=== PATIENT | female | born 1940 | race Caucasian/White ===

== ENCOUNTER 2021-02-28 21:08 | Inpatient (IN) | payer MEDICARE, SELFPAY ==
--- NOTE | ~2021-02-28 | CT_ITS ---
EXAMINATION: CT brain wo con DATE: 02/28/2021 21:50 INDICATION: Left facial droop TECHNIQUE: Computed tomography (CT) of the head was performed without intravenous contrast. Sagittal and coronal reconstructions were performed. The mA was adjusted according to patient size. Iterative reconstruction technique was employed. The dose-length product was 605.33 mGy-cm. COMPARISON: head CT dated 04/01/2016 FINDINGS: No acute intracranial hemorrhage, acute infarction or abnormal extra axial fluid collection. There is mild scattered white matter hypoattenuation consistent with chronic small vessel ischemic disease. V entricles are normal and symmetric. No mass/mass effect. Chronic small left mastoid effusion. The orb its and paranasal sinuses are normal. IMPRESSION: 1. Mild scattered white matter hypoattenuation consistent with chronic small vessel ischemic disease. No acute intracranial process. Reviewed, dictated and finalized at location A. IMPRESSION: 1. Mild scattered white matter hypoattenuation consistent with chronic small ve ssel ischemic disease. No acute intracranial process.
--- NOTE | ~2021-02-28 | US_ITS ---
EXAMINATION: US carotid duplex BI DATE: 03/01/2021 17:49 INDICATION: Left facial weakness. TECHNIQUE: Grayscale, color Doppler, and pulsed Doppler images of the cervical carotid arteries were obtained. The degree of vessel stenosis is placed in one of the following categories: normal, <50%, 5 0-69%, >=70% but less than near-occlusion, near-occlusion, or total occlusion. Note that percent sten osis relative to normal distal artery lumen diameter is indirectly measured from velocity measurement s as described by Angel, et al. Radiology 2003; 229:[id number]. COMPARISON: None. FINDINGS: There is an arrhythmia. RIGHT: The right common carotid artery (CCA) peak systolic velocity (PSV) is 82 cm/s. The right internal car otid artery (ICA) PSV is 82 cm/s. The right ICA end-diastolic velocity (EDV) is 25 cm/s. The right IC A/CCA PSV ratio is 1.0. Grayscale and color Doppler images yield an estimate of <50% diameter reducti on from plaque in the ICA. There is antegrade flow in the right vertebral artery. LEFT: The left CCA PSV is 99 cm/s. The left ICA PSV is 127 cm/s. The left ICA EDV is 31 cm/s. The left ICA/ CCA PSV ratio is 1.3. Grayscale and color Doppler images yield an estimate of <50% diameter reduction from plaque in the ICA. There is antegrade flow in the left vertebral artery. IMPRESSION: 1. <50% stenosis in the right internal carotid artery. 2. <50% stenosis in the left internal carotid artery. 3. Arrhythmia. Reviewed, dictated and finalized at location A.
--- NOTE | ~2021-02-28 | XR_ITS ---
EXAMINATION: XR chest 1V DATE: 02/28/2021 21:52 INDICATION: Stroke symptoms TECHNIQUE: frontal view of the chest was obtained. COMPARISON: Chest radiograph dated 04/01/2016 FINDINGS: Small calcified nodule at the left upper lung zone consistent with old granulomatous disease. No othe r airspace opacities, pulmonary edema, pleural effusion or pneumothorax. The cardiomediastinal silhou ette is normal. Visualized bones and soft tissues are unremarkable. IMPRESSION: 1. No acute cardiopulmonary disease. Reviewed, dictated and finalized at location A.
[2021-02-28 21:14] VITALS: BP 137/97; PULSE 117; RESP 20; TEMP 36.8; O2SAT 98
--- NOTE | 2021-02-28 21:41 | PC.NURSE ---
pt to CT at this time
--- NOTE | 2021-02-28 21:44 | ECG_ITS ---
Measurements Intervals [place] Rate: 108 P: [place]: 0 QRS: 49 QRSD: 79 T: 62 QT: 337 QTc: 453 Interpretive Statements ATRIAL FIBRILLATION WITH RAPID VENTRICULAR RESPONSE BASELINE ARTIFACT- I, II, AVR, AVF, V1, V3-V6 ABNORMAL ECG Electronically Signed On 03-01-2021 6:19:31 CDT by Farhat Duarte D.O.
[2021-02-28 21:59] LABS: Glucose Point of Care 191 mg/dl (65-105)
[2021-02-28 22:14] LABS: Basophils Absolute Auto 0.1 K/mm3 (0.0-0.1); Basophils Percent Auto 0.5 % (0.2-1.2); Eosinophils Absolute Auto 0.1 K/mm3 (0-0.3); Eosinophils Percent Auto 1.2 % (0-4.4); Hemoglobin 12.8 g/dL (12.0-15.0); Immature Granulocyte Absolute 0.05 K/mm3 (0.00-0.031); Immature Granulocyte Percent A 0.5 % (0-0.5); Lymphocytes Absolute Auto 1.53 K/mm3 (0.9-3.2); Lymphocytes Percent Auto 14.9 % (18.3-44.2); Mean Corpuscular HGB Conc 32.8 g/dl (32-36); Mean Corpuscular Hemoglobin 29.8 pg (26-34); Mean Corpuscular Volume 90.9 fl (80-100); Mean Platelet Volume 11.6 fl (7.4-10.4); Monocytes Absolute Auto 0.8 K/mm3 (0.1-0.6); Monocytes Percent Auto 7.6 % (2.6-8.5); Neutrophils Absolute Auto 7.8 K/mm3 (1.3-6.7); Neutrophils Percent Auto 75.3 % (45.5-73.1); Platelet Count Result 152 k/mm3 (150-375); Red Blood Count 4.29 M/mm3 (4.2-5.4); White Blood Count 10.3 K/mm3 (4.5-10.0)
[2021-02-28 22:19] LABS: Add Urine Microscopic? YES; Appearance Urine Clear (Clear); Bilirubin Urine Negative (Negative); Blood Urine 2+ (Negative); Color Urine Colorless (Yellow); Glucose Urine UA 2+ mg/dL (Negative); Ketones Urine Negative (Negative); Leukocyte Esterase Ur Negative LEU/UL (Negative); Nitrate Urine Negative (Negative); Protein Urine Negative (Negative); RBC Urine 0-2 /hpf (0-2); Specific Grav Ur 1.006 (1.001-1.035); Squamous Epithelial Cell Urine Rare /hpf (Few); Urobilinogen Urine Negative mg/dL (<2.0); WBC Urine 0-3 /hpf
[2021-02-28 22:24] LABS: Anion Gap 10 mmol/L (8-16); Blood Urea Nitrogen 18 mg/dL (7-17); Calcium 9.5 mg/dL (8.4-10.2); Carbon Dioxide 23 mmol/L (22-30); Chloride 108 mmol/L (98-107); Estimated CRCL calculation 39 ml/min; Estimated Glomerular Filt Rate > 60; Glucose 198 mg/dL (65-105); Potassium 3.8 mmol/L (3.4-5.0); Sodium 141 mmol/L (137-145)
[2021-02-28 22:35] LABS: Troponin I < 0.012 ng/mL (0.000-0.034)
[2021-02-28 23:00] VITALS: PULSE 120
[2021-02-28] MEDS: METOPROLOL TARTRATE 12.5 MG TABLET PO (23:00)
--- NOTE | 2021-02-28 23:01 | ED.NEUROSD ---
HPI - Neuro Symptoms/Deficit General Chief Complaint: Suspected CVA Stated Complaint: arm weakness Time Seen by Provider: 02/28/21 21:15 History of Present Illness HPI Narrative: Patient is a 80-year-old female who presents ER with concerns for stroke/TIA. Patient was sitting at dinner when she began to feel weak. She cannot hear the people at the table eating. She looked down to her hand and it was shaking. Family reported that she had right-sided facial droop. Symptoms lasted for several minutes. Resolved by the time EMS arrived. Patient with recent diagnosis of atrial fibrillation and just started metoprolol and warfarin. She is supposed to have follow-up with Dr. Huang tomorrow. She has no chest pain or chest pressure. She does not feel like her heart is racing. Related Data Home Medications Medication Instructions Recorded Confirmed ascorbic acid (vitamin C) [Vitamin 1,000 mg PO DAILY 07/08/19 03/01/21 C] calcium carbonate-vitamin D3 1 cap PO BID 07/08/19 03/01/21 [Calcium 600 with Vitamin D3] cholecalciferol (vitamin D3) 1,000 unit PO DAILY 07/08/19 03/01/21 [Vitamin D3] turmeric root extract 500 mg 500 mg PO DAILY 05/25/20 03/01/21 capsule magnesium 250 mg tablet 250 mg PO DAILY 08/27/20 03/01/21 vitamin B complex 1 tablet PO DAILY 08/27/20 03/01/21 metoprolol succinate 12.5 mg PO DAILY 03/01/21 03/01/21 warfarin 5 mg PO DAILY 03/01/21 03/01/21 Allergies Allergy/AdvReac Type Severity Reaction Status Date / Time No Known Allergies Allergy Verified 08/27/20 12:59 Review of Systems Review of Systems: All systems reviewed & are unremarkable except as noted in HPI and below Cardiovascular: Cardiovascular: Denies chest pain, Denies diaphoresis and Denies palpitations Respiratory: Respiratory: Denies cough and Denies dyspnea Gastrointestinal: Gastrointestinal: Denies abdominal pain, Denies nausea and Denies vomiting Neurologic: Denies headache(s), Reports focal weakness (Facial droop), Denies loss of vision, Denies numbness, Reports tremor(s) and Reports weakness PMFSH Past Medical History Medical History (Updated 03/01/21 @ 06:52 by Florencio Tariq MD) Anxiety Arthritis Atrial fibrillation Chronic rhinitis Degenerative joint disease of knee Depression DVT (deep venous thrombosis) Effusion, right knee Essential (primary) hypertension History of DVT (deep vein thrombosis) Hyperlipidemia Hypothyroidism Lumbar back pain Other spondylosis with myelopathy, lumbar region Right knee pain Thyroid disease Vertigo Vision abnormalities Surgical History Surgical History History of bladder surgery History of hysterectomy Hx of cholecystectomy Status post arthroscopy of right knee Family History Family History (Updated 03/01/21 @ 01:49 by Concha Murray RN) Mother Patient's mother is Family history of malignant neoplasm of breast in first degree relative Father Patient's mother is Sibling Family history of arthritis Other Cerebrovascular accident Family history of heart disease in male family member before age 55 Family history of malignant neoplasm of breast Social History Social History Smoking status: Never smoker Second hand tobacco smoke exposure: No Alcohol intake: never Substance use: never Substance use type: does not use Spiritual care concerns: No Exam Narrative: Exam Narrative: GENERAL: Well-appearing, well-nourished, and in no acute distress. HEAD: Normocephalic, atraumatic. EYES: PERRL and EOMI. ENT: Mucous membranes moist. CHEST: Clear to auscultation. No respiratory distress. HEART: Tachycardic with an irregular regular rate and rhythm. Normal peripheral pulses. ABDOMEN: Soft, nontender, nondistended. EXTREMITIES: Normal range of motion. No edema. SKIN: Warm, dry, no rash. NEURO:
[2021-02-28 23:16] VITALS: BP 116/86; PULSE 102; RESP 21; O2SAT 98
[2021-02-28 23:23] LABS: INR 1.2; Prothrombin Time 16.2 Seconds (11.1-14.7)
[2021-02-28 23:24] LABS: Partial Thromboplastin Time 26.5 SECONDS (22.3-36.8)
[2021-02-28] MEDS: ENOXAPARIN 80 MG/0.8 ML SYRINGE 61 MG SUB-Q (23:40)
[2021-02-28] MEDS: ACETAMINOPHEN 325 MG TABLET 650 MG PO (23:40)
[2021-03-01] VITALS (15 sets, daily range): BP systolic 106–122; BP diastolic 55–83; PULSE 73–137; RESP 16–18; TEMP 36.3–37; O2SAT 96–100; BMI 24.1
--- NOTE | 2021-03-01 | ECHO_ITS ---
Patient Info Name: Jenna Ozuna Age: 80 years : 1940 Gender: Female Ht: 62 in Wt: 134 lbs BSA: 1.64 m2 HR: 100 bpm BP: 107 / 58 mmHg Heart Rhythm: Atrial Fibrillation Technical Quality: Good Exam Date: 03/01/2021 1:48 PM Exam Location: [facility] Patient Status: Inpatient Admit Date: 03/01/2021 Staff Ordering Physician: Aram Coronado MD Helmet Hat Sweatband Puncher: Chase Garcia, MOE, RT Attending Provider: Aram Coronado MD Exam Type: CA echo doppler color flow Study Info Indications I63.239 - Cerebral infarction due to unspecified occlusion or stenosis of unspecified carotid arteries Complete two-dimensional, color flow and Doppler transthoracic echocardiogram is performed. Summary 1. Complete two-dimensional, color flow and Doppler transthoracic echocardiogram is performed. 2. Left ventricular chamber dimension is normal. 3. Left ventricular systolic function is normal, estimated at 60-65%. 4. There is mildly increased left ventricular wall thickness. 5. The left ventricular diastolic function is indeterminate. 6. Left atrial chamber dimension is moderately enlarged. 7. Somewhat abnormal appearance of the left atrium including pulmonary venous inflow. 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 8. There is mild aortic valve regurgitation. 9. There is moderate mitral valve regurgitation. 10. There is mild tricuspid valve regurgitation. 11. Mild pulmonary hypertension, estimated pulmonary arterial systolic pressure is 39 mmHg. 12. There is mild pulmonic regurgitation. Left Ventricle Left ventricular chamber dimension is normal. Left ventricular systolic function is normal, estimated at 60-65%. There is mildly increased left ventricular wall thickness. The left ventricular diastolic function is indeterminate. Right Ventricle Right ventricular chamber dimension is normal. Right ventricular systolic function is normal. Left Atria Left atrial chamber dimension is moderately enlarged. Somewhat abnormal appearance of the left atrium including pulmonary venous inflow. 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 Right Atria Right atrial chamber dimension is normal. Aortic Valve The aortic valve is trileaflet. There is mild aortic valve sclerosis. There is no aortic valve stenosis. There is mild aortic valve regurgitation. Pulmonic Valve The pulmonic valve is normal. There is no pulmonic valve stenosis. There is mild pulmonic regurgitation. Mitral Valve The mitral valve has normal leaflets. There is no mitral valve stenosis. There is moderate mitral valve regurgitation. Tricuspid Valve The tricuspid valve leaflets are normal. There is no significant tricuspid valve stenosis. There is mild tricuspid valve regurgitation. Mild pulmonary hypertension, estimated pulmonary arterial systolic pressure is 39 mmHg. Pericardium/Pleural The pericardium appears normal. There is no pericardial effusion. Inferior Vena Cava Normal inferior vena cava with <50% collapse upon inspiration consistent with elevated right atrial pressure, 10 mmHg. Aorta The aortic root size at the sinus of Valsalva is normal. Left Ventricular Outflow Tract Name Value Normal LVOT Doppler
--- NOTE | 2021-03-01 01:00 | PM.IMHP ---
H&P: HPI History of Present Illness Date/Time: 03/01/21 01:00 Chief Complaint: Stroke-like symptoms Narrative: Patient is a 80-year-old female who presents ER with concerns for stroke/TIA. Patient was sitting at dinner when she began to feel weird. She states she could not h see also felt like her hand was shaking. Jamal was not able to comprehend well. Family had noticed a right-sided facial droop at that time and they called and EMS. The symptoms lasted only for few minutes with complete resolution. By the time EMS was arrived the symptoms were resolved. She was brought into the ER for further evaluation She was recently diagnosed with atrial fibrillation while he was at the eye doctor for cataract surgery. While she was planned for the surgery the eye doctor had noticed an irregular heartbeat for which she was sent to her regular doctor for evaluation. Jamal had an EKG done at her primary care's office which showed atrial fibrillation diagnosing the same. She was then started on metoprolol which he has already started taking. She was given offered to start Eliquis however the cost was too high and hence he opted to be on warfarin. She had started her warfarin since past 3 days 5 mg every night. She is also scheduled to see Dr. Nicole for atrial fibrillation tomorrow. She has no chest pain or chest pressure. She does not feel like her heart is racing. Review of Systems Review of Systems: Narrative: - CONSTITUTIONAL: Denies weight loss, fever and chills. - HEENT: Denies changes in vision and hearing - RESPIRATORY: Denies SOB and cough. - CV: Reports palpitations and denies CP. - GI: Denies abdominal pain, nausea, vomiting and diarrhea. - : Denies dysuria and urinary frequency. - MSK: Denies myalgia and joint pain. - SKIN: Denies rash and pruritus. - NEUROLOGICAL: Denies headache and syncope. - PSYCHIATRIC: Denies recent changes in mood. Denies anxiety and depression. All systems reviewed & are unremarkable except as noted in HPI and below Neurologic: Reports weakness Endocrine: Endocrine: Reports fatigue [facility] Past Medical History Medical History (Updated 02/28/21 @ 23:03 by Florencio Tariq MD) Anxiety Arthritis Atrial fibrillation Chronic rhinitis Degenerative joint disease of knee Depression DVT (deep venous thrombosis) Effusion, right knee Essential (primary) hypertension History of DVT (deep vein thrombosis) Hyperlipidemia Hypothyroidism Lumbar back pain Other spondylosis with myelopathy, lumbar region Right knee pain Thyroid disease Vertigo Vision abnormalities Surgical History Surgical History History of bladder surgery History of hysterectomy Hx of cholecystectomy Status post arthroscopy of right knee Family History Family History (Updated 03/01/21 @ 01:49 by Concha Murray RN) Mother Patient's mother is Family history of malignant neoplasm of breast in first degree relative Father Patient's mother is Sibling Family history of arthritis Other Cerebrovascular accident Family history of heart disease in male family member before age 55 Family history of malignant neoplasm of breast Social History Social History Smoking status: Never smoker Second hand tobacco smoke exposure: No Alcohol intake: never Substance use: never Substance use type: does not use Spiritual care concerns: No Meds Home Medications and Allergies Home Medications Medication Instructions Recorded Confirmed Type ascorbic acid (vitamin C) [Vitamin 1,000 mg PO DAILY 07/08/19 03/01/21 History C] calcium carbonate-vitamin D3 1 cap PO BID 07/08/19 03/01/21 History [Calcium 600 with Vitamin D3] cholecalciferol (vitamin D3) 1,000 unit PO DAILY 07/08/19 03/01/21 History [Vitamin D3] turmeric root extract 500 m
--- NOTE | 2021-03-01 01:23 | ADMGEN ---
Addendum entered by Concha Murray RN 03/01/21 01:23: correction: at 1250 am. Original Note: This patient, Jenna Ozuna, was admitted to IMU Room 201-01 on 03/01/21 at 1250 pm. Patient/family oriented to hospital policies and general routines including ID bracelet, bed and alarms, visiting hours, pain management, procedures, bathroom and other care routines, personal items, smoking policy, room service/diet, and visiting hours. Information on how to activate the Rapid Response Team has been discussed. Patient/Family are encouraged to report perceived risks to care and to ask questions if they do not understand what they are told or what they should do.
[2021-03-01 03:24] LABS: Cholesterol 116 mg/dL (0-200); HDL Direct 48 mg/dL; Triglycerides 110 mg/dL (<150)
[2021-03-01 03:27] LABS: Hemoglobin A1C 5.3 % (<5.7)
[2021-03-01 03:35] LABS: LDL Cholesterol Direct 42 mg/dL
[2021-03-01] MEDS: LEVOTHYROXINE SODIUM 50 MCG TABLET PO (06:07)
[2021-03-01] MEDS: ASCORBIC ACID 500 MG TABLET 1000 MG PO (08:46)
[2021-03-01] MEDS: VITAMIN B COMPLEX CAPSULE 1 CAP PO (08:46)
[2021-03-01] MEDS: ENOXAPARIN 60 MG/0.6 ML SYRINGE SUB-Q ×2 (08:46→20:23)
[2021-03-01] MEDS: ATORVASTATIN 10 MG TABLET PO (08:46)
[2021-03-01] MEDS: CHOLECALCIFEROL 1,000 UNITS TABLET 1000 UNITS PO (08:46)
--- NOTE | 2021-03-01 10:59 | WPDNEURCNPN ---
Assessment and Plan Assessment and plan (1) Brain TIA: Code(s): G45.9 - Transient cerebral ischemic attack, unspecified Status: Acute Additional Plan atrial fib treatment as per Cardiology Consult date: 03/03/21 Time Seen: 11:00 HPI: Jenna Ozuna is a 80 year old female has been admitted to the [facility] through the emergency room for the concerns regarding the stroke. As per the information available patient was sitting at dinner table when she started feeling weird she had difficulties in seeing and her head was shaking she has also difficulties in comprehension and the observer saw that her right side of face was drooping EMS were called to the scene she was brought to the emergency room admitted to the hospital for further evaluation. Patient has been recently diagnosed to have atrial fibrillation when she was at the eye doctor for the cataract surgery EKG was carried out to the primary care physician and atrial fibrillation was documented as such and she was started on metoprolol he was offered to take Eliquis but she opted to take the warfarin which was started about 3 days ago 5 mg HS and she was to see Dr. Nicole for atrial fibrillation in the future her previous course is complicated with the ongoing history of arthritis with degenerative joint disease, for tension, history of DVT in the past, hyperlipidemia and low back pain with spondylosis pertinent investigations during this hospitalization have been fairly normal CBC, coagulation studies, blood sugar of [address] scan only documented hypoattenuation consistent with the chronic small-vessel ischemic disease no acute bleed or vascular territorial stroke Review of Systems Review of Systems: All systems reviewed & are unremarkable except as noted in HPI and below PMFSH Past Medical History Medical History Anxiety Arthritis Atrial fibrillation Chronic rhinitis Degenerative joint disease of knee Depression DVT (deep venous thrombosis) Effusion, right knee Essential (primary) hypertension History of DVT (deep vein thrombosis) Hyperlipidemia Hypothyroidism Lumbar back pain Other spondylosis with myelopathy, lumbar region Right knee pain Thyroid disease Vertigo Vision abnormalities Surgical History Surgical History History of bladder surgery History of hysterectomy Hx of cholecystectomy Status post arthroscopy of right knee Family History Family History Mother Patient's mother is Family history of malignant neoplasm of breast in first degree relative Father Patient's mother is Sibling Family history of arthritis Other Cerebrovascular accident Family history of heart disease in male family member before age 55 Family history of malignant neoplasm of breast Social History Social History Smoking status: Never smoker Second hand tobacco smoke exposure: No Alcohol intake: never Substance use: never Substance use type: does not use Spiritual care concerns: No Meds Home Medications and Allergies Home Medications Medication Instructions Recorded Confirmed Type ascorbic acid (vitamin C) [Vitamin 1,000 mg PO DAILY 07/08/19 03/01/21 History C] calcium carbonate-vitamin D3 1 cap PO BID 07/08/19 03/01/21 History [Calcium 600 with Vitamin D3] cholecalciferol (vitamin D3) 1,000 unit PO DAILY 07/08/19 03/01/21 History [Vitamin D3] turmeric root extract 500 mg 500 mg PO DAILY 05/25/20 03/01/21 History capsule magnesium 250 mg tablet 250 mg PO DAILY 08/27/20 03/01/21 History vitamin B complex 1 tablet PO DAILY 08/27/20 03/01/21 History levothyroxine 50 mcg tablet 50 mcg PO DAILY 90 Days #90 tablet 12/01/20 03/01/21 Rx atorvastatin 10 mg tablet 10 mg PO
[2021-03-01] MEDS: METOPROLOL TARTRATE 25 MG TABLET PO (11:36)
--- NOTE | 2021-03-01 12:19 | PM.CNCAR ---
Assessment and Plan Assessment and plan (1) Atrial fibrillation with RVR: Code(s): I48.91 - Unspecified atrial fibrillation Status: Acute Assessment and Plan: Uncertain how long she has actually been in atrial fibrillation. She is at risk of clot formation. 2D echocardiogram with Doppler is ordered. Will also keep her NPO after midnight for possible FATMATA plus minus cardioversion. Will increase her metoprolol to 50 mg p.o. q.8 hours. Continue enoxaparin 1 milligram/kilogram subcu q.12 hours. Will vogt out Xarelto at 20 mg p.o. daily. 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 Continue anticoagulation with enoxaparin for now. Will perform FATMATA plus/minus cardioversion tomorrow (5) Chronic anticoagulation: Code(s): Z79.01 - terminal system operator (current) use of anticoagulants Status: Acute Assessment and Plan: Continue enoxaparin for now. (6) Bilateral lower extremity edema: Code(s): R60.0 - Localized edema Status: Acute Assessment and Plan: Furosemide 20 mg IV x1. Potassium chloride 40 mg p.o. x1. History of Present Illness History of Present Illness Consult date/time: 03/01/21 12:19 Requesting physician: Florencio Tariq MD Consult reason: atrial fibrillation Reason For Visit: afib rvr, tia Narrative: Date of service 03/01/2021: History patient [age]-year-old female who previously saw Dr. Olivera from a cardiac perspective. She has been diagnosed with cor triatriatum remotely at [facility]. She recently was scheduled for a cataract surgery and was found to be in atrial fibrillation with rapid ventricular response. She was started on metoprolol and warfarin. Warfarin which shows because of cost with Eliquis. She has significant lower back pain as well as some knee pain. She has had lower extremity swelling since April 2019 after hernia operation. She also describes a chronic pleuritic type chest pain that occurs every once a while which is nonexertional. She does have dyspnea with exertion with climbing up 1 flight of stairs and has been present for couple of weeks. Yesterday she was at her daughter's house and she felt weird. She had some loss of control of her left hand and felt as if her left hand not belong to her. There is also reported right facial droop. She came the hospital for further evaluation. She has since recovered neurologically. She was found to be in atrial fibrillation with rapid ventricular response. She has been treated with enoxaparin as well as oral metoprolol. Heart rate is still elevated. She denies any paroxysmal nocturnal dyspnea, syncope. Chronic swelling since 2019 as stated above. She does not feel palpitations. Review of Systems Review of Systems: All systems reviewed & are unremarkable except as noted in HPI and below Constitutional: Constitutional: Denies weakness Eyes: Eyes: Denies blurry vision ENT: Reports Normal hearing present Cardiovascular: Cardiovascular: Reports chest pain and Reports leg edema Respiratory: Respiratory: Reports dyspnea and Reports dyspnea on exertion Gastrointestinal: Gastrointestinal: Denies abdominal pain Genitourinary: Genitourinary: Denies hematuria and Denies flank pain Musculoskeletal: Musculoskeletal: Reports back pain, Reports arthralgias and Denies neck pain Integumentary/Breasts: Skin/Breast: Denies dry skin and Denies unusual bruising Neurologic: Denies headache(s) and Denies numbness Psychiatric: Psychiatric:
--- NOTE | 2021-03-01 12:33 | PCPTNOTE ---
Attempted PT evaluation this date, however pt refused due to having back pain.
--- NOTE | 2021-03-01 14:12 | PM.IMPN ---
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 Brain MRI refused as she is claustrophobic Lovenox 1 milligram/kilogram twice a day switched to Xarelto Coumadin on hold Metoprolol tartrate 25 mg twice a day Cardiology and neurology consulted Started on lidoderm patch Subjective Date/time seen: 03/01/21 14:12 Interval history: 80-year-old female who presents ER with concerns for stroke/TIA. Pt is in AF receiving lovenox for anticoagulation. Review of Systems Review of Systems: All systems reviewed & are unremarkable except as noted in HPI and below Exam Narrative: Exam Narrative: GENERAL: The patient is well developed, not in acute distress HEENT: Nonicteric sclerae CHEST: Chest wall is nontender. HEART: Irregular rhythm mildly tachycardic without murmur, rubs, or gallops LUNGS: Clear to auscultation bilaterally. no respiratory distress ABDOMEN: Soft, positive bowel sounds, non-tender, no organomegaly. SKIN: No rash, no excessive bruising, petechiae, or purpura. NEUROLOGIC: Cranial nerves II-XII intact, alert and oriented x 3, no gross motor deficits EXTREMITIES: no edema, cyanosis or clubbing Objective Data Vital Signs Vital Signs: Vital Signs - 24 hr 02/28/21 21:14 02/28/21 23:00 02/28/21 23:16 Temperature 36.8 C Pulse Rate 117 H 120 H 102 H Respiratory Rate 20 21 H Blood Pressure 137/97 H 116/86 Pulse Oximetry 98 98 03/01/21 00:49 03/01/21 00:50 03/01/21 02:00 Temperature 36.7 C Pulse Rate 116 H 119 H 95 Respiratory Rate 17 16 Blood Pressure 122/83 122/75 Pulse Oximetry 100 100 03/01/21 02:24 03/01/21 04:00 03/01/21 06:00 Temperature 36.3 C L Pulse Rate 95 73 113 H Respiratory Rate 16 Blood Pressure 107/58 L Pulse Oximetry 98 03/01/21 08:00 03/01/21 10:00 03/01/21 12:00 Temperature 36.8 C 37.0 C Pulse Rate 120 H 132 H 137 H Respiratory Rate 17 17 Blood Pressure 118/74 119/67 Pulse Oximetry 100 100 Intake/Output Intake/Output: Intake & Output 02/26/21 02/27/21 02/28/21 03/01/21 23:59 23:59 23:59 23:59 Intake Total 480 Output Total 475 Balance 5 Meds/Results Medications: Active Medications Generic Name Dose Route Start Last Admin Trade Name Josuéq PRN Reason Stop Dose Admin Hydrocodone Bitart/Acetaminophen 1 tab 02/28/21 23:35 Hydrocodone/Acetaminophen (*Crx) 5-325 Mg Tablet PO Q4H PRN Pain Rated 4-6 Ascorbic Acid 1,000 mg 03/01/21 09:00 03/01/21 08:46 Ascorbic Acid 500 Mg Tablet PO 1,000 mg DAILY CARMEN Administration Atorvastatin Calcium 10 mg 03/01/21 09:00 03/01/21 08:46 Atorvastatin 10 Mg Tablet PO 10 mg DAILY CARMEN Administration Calcium Carbonate 500 mg 03/01/21 09:00 03/01/21 08:46 Calcium/Vitamin D 500 Mg Tablet PO 03/31/21 09:01 500 mg BID CARMEN Administration Enoxaparin Sodium 60 mg 03/01/21 09:00 03/01/21 08:46 Enoxaparin 60 Mg/0.6 Ml Syringe SUB-Q 60 mg Q12HR CARMEN Administration Levothyroxine Sodium 50 mcg 03/01/21 06:30 03/01/21 06:07 Levothyroxine Sodium 50 Mcg Tablet PO 50 mcg DAILY@0630 CARMEN Administration Metoprolol
[2021-03-01] MEDS: LIDOCAINE 5% PATCH 1 PATCH TRANSDERM (15:04)
[2021-03-01] MEDS: POTASSIUM CHLORIDE 20 MEQ TABLET 40 MEQ PO (15:05)
[2021-03-01] MEDS: FUROSEMIDE INJ 40 MG/4 ML VIAL 20 MG IV PUSH (15:05)
[2021-03-01] MEDS: METOPROLOL TARTRATE 50 MG TAB PO (20:22)
[2021-03-02] VITALS (9 sets, daily range): BP systolic 97–99; BP diastolic 52–65; PULSE 73–100; RESP 16–18; TEMP 35.8–36.5; O2SAT 97–100
[2021-03-02 04:35] LABS: Basophils Absolute Auto 0.1 K/mm3 (0.0-0.1); Basophils Percent Auto 0.6 % (0.2-1.2); Eosinophils Absolute Auto 0.1 K/mm3 (0-0.3); Eosinophils Percent Auto 0.7 % (0-4.4); Hematocrit 36.8 % (37.0-47.0); Hemoglobin 12.4 g/dL (12.0-15.0); Immature Granulocyte Absolute 0.04 K/mm3 (0.00-0.031); Immature Granulocyte Percent A 0.4 % (0-0.5); Lymphocytes Absolute Auto 2.18 K/mm3 (0.9-3.2); Lymphocytes Percent Auto 20.3 % (18.3-44.2); Mean Corpuscular HGB Conc 33.7 g/dl (32-36); Mean Corpuscular Hemoglobin 30.2 pg (26-34); Mean Corpuscular Volume 89.8 fl (80-100); Mean Platelet Volume 11.6 fl (7.4-10.4); Monocytes Absolute Auto 0.8 K/mm3 (0.1-0.6); Monocytes Percent Auto 7.8 % (2.6-8.5); Neutrophils Absolute Auto 7.5 K/mm3 (1.3-6.7); Neutrophils Percent Auto 70.2 % (45.5-73.1); Platelet Count Result 185 k/mm3 (150-375); Red Cell Distribution Width 12.7 % (11.5-14.5); White Blood Count 10.7 K/mm3 (4.5-10.0)
[2021-03-02 04:44] LABS: Anion Gap 8 mmol/L (8-16); Blood Urea Nitrogen 14 mg/dL (7-17); Carbon Dioxide 26 mmol/L (22-30); Chloride 108 mmol/L (98-107); Estimated CRCL calculation 34 ml/min; Estimated Glomerular Filt Rate 60; Glucose 94 mg/dL (65-105); Potassium 4.1 mmol/L (3.4-5.0); Sodium 142 mmol/L (137-145)
[2021-03-02] MEDS: METOPROLOL TARTRATE 50 MG TAB PO (06:28)
[2021-03-02] MEDS: LEVOTHYROXINE SODIUM 50 MCG TABLET PO (06:28)
[2021-03-02] MEDS: MAGNESIUM OXIDE 200 MG TABLET PO (08:50)
[2021-03-02] MEDS: ATORVASTATIN 10 MG TABLET PO (08:50)
[2021-03-02] MEDS: VITAMIN B COMPLEX CAPSULE 1 CAP PO (08:50)
[2021-03-02] MEDS: ASCORBIC ACID 500 MG TABLET 1000 MG PO (08:50)
[2021-03-02] MEDS: CHOLECALCIFEROL 1,000 UNITS TABLET 1000 UNITS PO (08:50)
[2021-03-02] MEDS: ENOXAPARIN 60 MG/0.6 ML SYRINGE SUB-Q (08:50)
[2021-03-02] MEDS: LIDOCAINE 5% PATCH 1 PATCH TRANSDERM (08:52)
--- NOTE | 2021-03-02 10:02 | PM.PNCARD ---
Progress Note: A&P Assessment and Plan (1) Atrial fibrillation with RVR: Code(s): I48.91 - Unspecified atrial fibrillation Status: Acute Assessment and Plan: Uncertain how long she has actually been in atrial fibrillation. She is at risk of clot formation. Will DC her enoxaparin and start her on Xarelto 20 mg p.o. daily Heart rate is well controlled with metoprolol. Plan will be for outpatient elective cardioversion in 4-6 weeks. Uninterrupted Xarelto in the interim period Okay for discharge from my perspective. 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 Will perform advanced cardiac imaging as an outpatient (3) Essential (primary) hypertension: Code(s): I10 - Essential (primary) hypertension Status: Acute Assessment and Plan: At goal (4) Brain TIA: Code(s): G45.9 - Transient cerebral ischemic attack, unspecified Status: Acute Assessment and Plan: Probable TIA from embolic from atrial fibrillation. Continue Xarelto (5) Chronic anticoagulation: Code(s): Z79.01 - intermediate project manager (current) use of anticoagulants Status: Chronic Assessment and Plan: Continue enoxaparin for now. (6) Bilateral lower extremity edema: Code(s): R60.0 - Localized edema Status: Chronic Subjective Date/time seen: 03/02/21 10:02 Interval history: 80-year-old female who presents ER with concerns for stroke/TIA. Date of service 03/02/2021: Feels well. No chest pain or shortness of breath. Feels much better overall today Review of Systems Review of Systems: All systems reviewed & are unremarkable except as noted in HPI and below Constitutional: Constitutional: Denies fatigue, Denies headache(s) and Denies weakness Eyes: Eyes: Denies blurry vision ENT: Reports Normal hearing present, Denies headache(s) and Denies neck pain Cardiovascular: Cardiovascular: Reports chest pain, Reports leg edema, Reports dyspnea and Reports dyspnea on exertion Respiratory: Respiratory: Reports dyspnea and Reports dyspnea on exertion Gastrointestinal: Gastrointestinal: Denies abdominal pain Genitourinary: Genitourinary: Denies hematuria and Denies flank pain Musculoskeletal: Musculoskeletal: Reports back pain, Reports arthralgias, Denies neck pain and Denies numbness Integumentary/Breasts: Skin/Breast: Denies dry skin and Denies unusual bruising Neurologic: Reports Normal hearing present, Denies confusion, Denies headache(s), Denies numbness and Denies weakness Psychiatric: Psychiatric: Denies anxiety and Denies confusion Endocrine: Endocrine: Denies fatigue Hematologic/Lymphatic: Hematologic/Lymphatic: Denies easy bleeding Allergic/Immunologic: Allergic/Immunologic: Denies GI upset with certain foods Exam Const: General: comfortable and no acute distress; No confusion Orientation/consciousness: No confusion HENMT: General nose exam: Normal nares present Eyes: Sclera: sclerae normal Neck: Neck: supple and no JVD Resp: Auscultation: clear to auscultation bilaterally Cardio: Rate: regular rate Rhythm: abnormal rhythm irregularly irregular GI: Inspection: non-distended Skin: General skin exam: normal color Neuro: General: No confusion Cranial nerves: Yes Normal hearing present Cognition (Neuro): normal cognition Speech: normal speech Extrem: General: normal to inspection Psych: Mental Status: mental status grossly normal Objective Data Vital Signs Vital Signs: Vital Signs - 24 hr 03/01/21 12:00 03/01/21 14:00 03/01/21 16:00 Temperature 37.0 C 37.0 C Pulse Rate 137 H 121 H 128 H Respiratory Rate 17 17 Blood Pressure 119/67 114/66 Pulse Oximetry 100 100 03/01/21 18:00 03/01/21 20:00 03/01/21 22:00 Temperature 36.4 C Pulse Rate 135 H
[2021-03-02 10:48] LABS: T4 Thyroxine 6.98 ug/dL (5.53-11.0)
--- NOTE | 2021-03-02 12:11 | PM.DS ---
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 Patient was sitting at dinner when she began to feel weird. She states she could not h see also felt like her hand was shaking. Jamal was not able to comprehend well. Family had noticed a right-sided facial droop at that time and they called and EMS. The symptoms lasted only for few minutes with complete resolution. By the time EMS was arrived the symptoms were resolved. She was brought into the ER for further evaluation She was recently diagnosed with atrial fibrillation while he was at the eye doctor for cataract surgery. While she was planned for the surgery the eye doctor had noticed an irregular heartbeat for which she was sent to her regular doctor for evaluation. Jamal had an EKG done at her primary care's office which showed atrial fibrillation diagnosing the same. She was then started on metoprolol which he has already started taking. She was given offered to start Eliquis however the cost was too high and hence he opted to be on warfarin. She had started her warfarin since past 3 days 5 mg every night. She is also scheduled to see Dr. Nicole for atrial fibrillation tomorrow. She has no chest pain or chest pressure. She does not feel like her heart is racing. Hospital Course: 80-year-old female presented emergency depart with symptoms TIA, symptoms resolved in few min, was found to have and a fibrillation with RVR, patient was started on metoprolol a rate is now controlled, patient was seen by shear operator automatic recommended the patient need to be anticoagulated 4-6 weeks before cardioverting, patient is started on Xarelto, patient rate is controlled clinically stable will discharge the patient to follow-up with cardiology as outpatient. Status at Discharge Functional status at discharge: independent ambulation Overall status at discharge: patient is back to baseline Time Spent with Patient Time attestation: Total time spent providing and/or coordinating discharge services: Patient was seen and examined at the time of the discharge Condition at discharge is stable Code status: Full code. Time spent preparing discharge summary, discharge medications, discussing discharge planning with manager rn case and patient is 35 minutes. Exam Narrative: Exam Narrative: Patient is comfortable, NAD HEENT: eyes are clear and none icteric LUNGS:CTA HEART: irregularly irregular ABD: BS+, Soft and nontender Lower extremities: no edema SKIN: nonjaundiced Neuro: grossly intact. DS: Data Data Completed and Pending Labs on day of discharge: Labs from last 24 hours 03/02/21 03/02/21 03/02/21 04:18 04:18 04:16 WBC 10.7 H RBC 4.10 L Hgb 12.4 Hct 36.8 L MCV 89.8 MCH 30.2 MCHC 33.7 RDW 12.7 Plt Count 185 MPV 11.6 H Immature Gran % (Auto) 0.4 Neut % (Auto) 70.2 Lymph % (Auto) 20.3 Borden % (Auto) 7.8 Eos % (Auto) 0.7 Baso % (Auto) 0.6 Lymph # (Auto) 2.18 Borden # (Auto) 0.8 H Eos # (Auto) 0.1 Baso # (Auto) 0.1 Abs Immat Gran (auto) 0.04 H Absolute Neuts (auto) 7.5 H Absolute Nucleated R
== END 2021-03-02 12:50 | disposition home or self-care (01) | DRG 69 ==
LOC: ANHED 22:01 → ANHIMU 03-01 00:15
PROVIDERS: Internal Medicine Cardiovascular Disease; Admitting Provider Internal Medicine; Emergency Provider Emergency Medicine; PCP Family Medicine; Visit Provider Family Medicine
DX: G45.9 Transient cerebral ischemic attack, unspecified (principal); Q24.2 Cor triatriatum; F40.240 Claustrophobia; R79.1 Abnormal coagulation profile; I48.91 Unspecified atrial fibrillation; I10 Essential (primary) hypertension; E78.5 Hyperlipidemia, unspecified; E03.9 Hypothyroidism, unspecified; M54.5 Low back pain; G89.29 Other chronic pain; R60.0 Localized edema; Z79.01 Long term (current) use of anticoagulants; Z79.899 Other long term (current) drug therapy; Z86.718 Personal history of other venous thrombosis and embolism
CPT/HCPCS: 36415; 70450; 71045; 80048; 80061; 81001; 82948; 83036; 84436; 84443; 84484; 85025; 85610; 85730; 93005; 93306; 93880; 96372; 97161; 97165; 99285; A9270; G0378; J1650; J1940

== ENCOUNTER 2021-03-30 01:09 | Day surgery (SDC) | payer MEDICARE, SELFPAY ==
[2021-03-29 15:50] VITALS: BMI 24.2
[2021-03-30] VITALS (9 sets, daily range): BP systolic 102–161; BP diastolic 66–103; PULSE 64–137; RESP 10–22; TEMP 36.3; O2SAT 97–100; BMI 24.8
--- NOTE | 2021-03-30 | ECG_ITS ---
Measurements Intervals [place] Rate: 78 P: 85 MS: 169 QRS: 40 QRSD: 71 T: 63 QT: 381 QTc: 435 Interpretive Statements WANDERING PACEMAKER LOW QRS VOLTAGE IN PRECORDIAL LEADS ATRIAL PREMATURE COMPLEX BORDERLINE ECG Electronically Signed On 03-30-2021 12:54:43 CDT by Farhat Duarte D.O.
--- NOTE | 2021-03-30 10:20 | ECG_ITS ---
Measurements Intervals [place] Rate: 118 P: AL: 0 QRS: 58 QRSD: 72 T: 57 QT: 325 QTc: 456 Interpretive Statements ATRIAL FIBRILLATION WITH RAPID VENTRICULAR RESPONSE BORDERLINE T WAVE ABNORMALITY- ANTEROLAT/HIGH LAT LEADS BASELINE WANDER- V4-V6 ABNORMAL ECG Electronically Signed On 03-30-2021 10:23:09 CDT by Farhat Duarte D.O.
[2021-03-30 10:23] LABS: INR 1.6; Prothrombin Time 18.7 Seconds (11.1-14.7)
[2021-03-30 10:26] LABS: Anion Gap 8 mmol/L (8-16); Blood Urea Nitrogen 17 mg/dL (7-17); Calcium 10.1 mg/dL (8.4-10.2); Carbon Dioxide 26 mmol/L (22-30); Chloride 106 mmol/L (98-107); Estimated CRCL calculation 34 ml/min; Estimated Glomerular Filt Rate 60; Glucose 91 mg/dL (65-110); Magnesium 1.9 mg/dL (1.6-2.3); Potassium 4.2 mmol/L (3.4-5.0); Sodium 140 mmol/L (137-145)
--- NOTE | 2021-03-30 11:15 | WPDHPUPDATE1 ---
History and Physical Update Update Date/Time: 03/30/21 1115 History and Physical has been reviewed, including an updated exam of the patient. There are NO changes in the patient's condition. Risks, benefits, and alternatives have been discussed and questions answered. Patient agrees to proceed with procedure.
--- NOTE | 2021-03-30 12:04 | WPDMODSED ---
Moderate Sedation Note-Pt Data Patient Data Diagnosis: atrial fibrillation with rapid ventricular response Present Complaint: none Procedure to be performed/Plan: transesophageal echocardiogram guided elective electrical cardioversion Allergies Allergy/AdvReac Type Severity Reaction Status Date / Time No Known Allergies Allergy Verified 03/30/21 10:36 Home Medications Medication Instructions Recorded Confirmed Type ascorbic acid (vitamin C) [Vitamin 1,000 mg PO DAILY 07/08/19 03/29/21 History C] calcium carbonate-vitamin D3 1 cap PO BID 07/08/19 03/29/21 History [Calcium 600 with Vitamin D3] turmeric root extract 500 mg 500 mg PO DAILY 05/25/20 03/29/21 History capsule magnesium 250 mg tablet 250 mg PO DAILY 08/27/20 03/29/21 History vitamin B complex 1 tablet PO DAILY 08/27/20 03/29/21 History levothyroxine 50 mcg tablet 50 mcg PO DAILY 90 Days #90 tablet 12/01/20 03/29/21 Rx atorvastatin 10 mg tablet 10 mg PO DAILY #90 tablet 12/23/20 03/29/21 Rx metoprolol tartrate 50 mg PO Q8HR #90 tablet 03/02/21 03/29/21 Rx rivaroxaban [Xarelto] 20 mg PO DAILY@1700 #30 tablet 03/02/21 03/29/21 Rx Current Medications: Active Medications Sodium Chloride (Normal Saline Iv) 500 mls @ 30 mls/hr IV CONT .[id number] CARMEN Sedation/Anesthesia: No previous sedation/anesthesia problems (including family history). [facility] Past Medical History Medical History Anxiety Arthritis Atrial fibrillation Chronic rhinitis Degenerative joint disease of knee Depression DVT (deep venous thrombosis) Effusion, right knee Essential (primary) hypertension History of DVT (deep vein thrombosis) Hyperlipidemia Hypothyroidism Lumbar back pain Other spondylosis with myelopathy, lumbar region Right knee pain Thyroid disease Vertigo Vision abnormalities Surgical History Surgical History History of bladder surgery History of hysterectomy Hx of cholecystectomy Status post arthroscopy of right knee Family History Family History Mother Patient's mother is Family history of malignant neoplasm of breast in first degree relative Father Patient's mother is Sibling Family history of arthritis Other Cerebrovascular accident Family history of heart disease in male family member before age 55 Family history of malignant neoplasm of breast Social History Social History Smoking status: Former smoker Second hand tobacco smoke exposure: No Smoking end date: 09/11/1961 Alcohol intake: never Substance use: never Substance use type: does not use Living arrangements: with family Gender identity (if verbalized by the patient): Female Sexual Orientation (if Verbalized by the Patient): Straight or Heterosexual Spiritual care concerns: No Mod Sed Physical Exam Physical Exam Pre Procedural Exam: Normal: Appearance, Eyes, Ears, Nose, Neck ( supple, normal range of motion), Throat ( posterior hypopharynx clear, nonerythematous), Airway ( normal anatomy, no obstruction), Lungs ( clear to auscultation bilaterally), Heart Size, Neuro Exam, Abdomen, Liver, Extremities and Skin and Variation: Heart Rate ( tachycardic) and Heart Rhythm ( irregularly irregular rate and rhythm) Hours since solid foods: 16 Hours since liquid intake: 16 Mallampati Classification: class III Internal Medicine - PN: Obj Da Vital Signs Vital Signs: Vital Signs - 24 hr 03/30/21 10:38 03/30/21 11:20 03/30/21 11:30 Temperature 36.3 C L Pulse Rate 137 H 117 H 120 H Respiratory Rate 22 H 20 10 L Blood Pressure 137/100 H 161/103 H Pulse Oximetry 100 99 100 03/30/21 11:40 03/30/21 11:45 Temperature Pulse Rate 121 H 74 Respiratory Rate 14 12 Blood Pressure 127/91 H 130/88 Pulse Oximetry 100 98
--- NOTE | 2021-03-30 12:07 | WPDTECDV ---
FATMATA with Cardioversion Date of procedure: 03/30/21 Procedure Type: transesophageal echocardiogram guided elective electrical cardioversion Diagnosis: atrial fibrillation with rapid ventricular response Indications: atrial fibrillation with rapid ventricular response Description of Procedure: Brief history present illness: Patient is a pleasant 80-year-old female with a history of cor triatriatum, atrial fibrillation with rapid ventricular response on systemic anticoagulation, dyslipidemia, hypothyroidism with persistent atrial fibrillation with rapid ventricular response referred for transesophageal echocardiogram-guided elective electrical cardioversion in attempt to restore sinus rhythm. Procedure in detail: After verbal and written informed consent was obtained the patient risks, benefits, and alternatives explained in detail the patient agreed to proceed with the plan of care as outlined above. Patient was evaluated at bedside in the [facility] procedure room. On examination, neck was supple with normal range of motion, no restrictions to opening of the oral cavity, jaw angle and posterior hypopharynx was clear. Lungs were clear to auscultation. Patient was placed in appropriate 30 to 45 degree angle in a supine, slight left lateral decubitus position. Patient was monitored throughout the study with telemetry, oxygen saturation, end-tidal CO2 monitoring, blood pressure, heart rate, and respirations. Anterior and posterior defibrillator pads placed in the appropriate positions. The posterior hypopharynx was then locally anesthetized using repeated administration of Hurricaine spray as well as gargled viscous lidocaine. After local anesthetic of the posterior hypopharynx was achieved and the oral bite block placed, moderate sedation was administered. Through the oral bite block, the transesophageal echocardiogram probe was advanced into the posterior hypopharynx and into the esophagus easily and without complication. Multiple, multiplanar echocardiographic images were obtained in multiple standard re-projections. Pulsed wave, continuous-wave, and color-flow Doppler were utilized in conjunction with this study. At the conclusion of the study, the transesophageal echocardiogram probe was removed easily and without complication. Patient tolerated the procedure well without difficulty. Patient was in atrial fibrillation throughout the study. Sedation: Moderate Sedation/Anesthesia administration: Patient denied previous intolerance or complications with anesthesia/sedation. Please see sedation note for documentation of the pre-procedure physical examination. As noted above, after adequate local anesthesia of the posterior hypopharynx was achieved, a total of 3mg intravenous Versed and a total of 100mcg intravenous Fentanyl in multiple divided doses was utilized for moderate sedation. Sedation start time was 1123 and end time was 1143 for a total of 20 minutes [id number] intra-procedure time. Sedation was administered by a qualified observer Vanesa Clay RN under my supervision with intra-procedure [id number] observation and management throughout the entirety of the procedure. There were no other issues or complications and patient tolerated the procedure well and sedation protocol well and I was present for the entirety. Findings: FINDINGS: LEFT VENTRICLE: Size and systolic function were within normal limits without wall motion abnormalities with ejection fraction of 60%. RIGHT VENTRICLE: Size and systolic function within normal limits. LEFT ATRIUM: Moderate left atrial enlargement RIGHT ATRIUM: Normal size. INTERATRIAL SEPTUM: Interatrial septum is anatomically normal without evidence of shunt with color-flow Doppler nor with injection of agitated saline. MITRAL VALVE: Mitral valve is anatomically normal with preserved leaflet excursion and at least moderate regurgitation. AORTIC VALVE: The aortic valve was an anatomical
--- NOTE | 2021-03-30 15:01 | SUR.PHASEII ---
1330 - FATMATA/CV complete. HR converted to NSR. pt tolerating po fluids without nausea or vomiting. IV discontinued, catheter intact, site without redness or swelling. Discharge instructions reviewed with pt and spouse with stated understanding. discharge via wheelchair to personal vehicle - driving.
== END 2021-03-30 13:30 | disposition home or self-care (01) ==
PROVIDERS: PCP Family Medicine; Visit Provider Internal Medicine Cardiovascular Disease
PROC: 5A2204Z Restoration of Cardiac Rhythm, Single (ICD-10-PCS; principal; 2021-03-30 11:00)
PROC: (CPT 93312; 2021-03-30 11:00)
DX: I48.19 Other persistent atrial fibrillation (principal); I34.0 Nonrheumatic mitral (valve) insufficiency; E78.5 Hyperlipidemia, unspecified; M81.0 Age-related osteoporosis without current pathological fracture; Z86.73 Personal history of transient ischemic attack (TIA), and cerebral infarction without residual deficits; Z79.01 Long term (current) use of anticoagulants
CPT/HCPCS: 36415; 80048; 83735; 85610; 92960; 93005; 93312; 93320; 93325; J2250; J3010; J7030

== ENCOUNTER 2023-04-13 01:07 | Day surgery (SDC) | payer MEDICARE, SELFPAY ==
[2023-04-06 12:58] VITALS: BMI 23.1
--- NOTE | 2023-04-12 20:13 | PM.HPGS ---
History of Present Illness History of Present Illness Consent: Risks, benefits, and alternatives have been discussed and questions answered. Patient agrees to proceed with procedure. Chief complaint: positive cologuard, heartburn Narrative: Jenna Ozuna is a 82 year old female with GERD symptoms and + Cologurd. She occasionally gets heartburn and lately has been having difficulty swallowing food at times without hanging up on the way down. Review of Systems Review of Systems: All systems reviewed & are unremarkable except as noted in HPI and below PMFSH Past Medical History Medical History Anxiety Arthritis Atrial fibrillation Chronic rhinitis Degenerative joint disease of knee Depression DVT (deep venous thrombosis) Effusion, right knee Essential (primary) hypertension History of DVT (deep vein thrombosis) Hyperlipidemia Hypothyroidism Lumbar back pain Other spondylosis with myelopathy, lumbar region Right knee pain Thyroid disease Vertigo Vision abnormalities Surgical History Surgical History History of bladder surgery History of hysterectomy Hx of cholecystectomy Status post arthroscopy of right knee Family History Family History Mother Patient's mother is Family history of malignant neoplasm of breast in first degree relative Father Patient's mother is Sibling Family history of arthritis Other Cerebrovascular accident Family history of heart disease in male family member before age 55 Family history of malignant neoplasm of breast Social History Social History Smoking status: Never smoker Second hand tobacco smoke exposure: No Smoking end date: 09/11/1961 Alcohol intake: current Substance use: never Substance use type: does not use Living arrangements: with family Gender identity (if verbalized by the patient): Female Sexual Orientation (if Verbalized by the Patient): Straight or Heterosexual Spiritual care concerns: No Meds Home Medications and Allergies Home Medications Medication Instructions Recorded Confirmed Type ascorbic acid (vitamin C) 500 mg 500 mg PO BID 07/08/19 04/06/23 History tablet (Vitamin C) turmeric root extract 500 mg 500 mg PO DAILY 05/25/20 04/06/23 History capsule atorvastatin 10 mg tablet 10 mg PO DAILY #90 tabs 12/23/20 04/06/23 Rx rivaroxaban 20 mg tablet (Xarelto) 20 mg PO DAILY@1700 #30 tabs 03/02/21 04/13/23 Rx Cinnamon 0.5 tsp PO DAILY 04/06/23 04/06/23 History acetaminophen 650 mg 650 mg PO BID 04/06/23 04/06/23 History tablet,extended release (Tylenol 8 Hour) cholecalciferol (vitamin D3) 25 25 mcg PO DAILY 04/06/23 04/06/23 History mcg (1,000 unit) tablet (Vitamin D3) levothyroxine 50 mcg tablet 50 mcg PO 0200 04/06/23 04/06/23 History (Euthyrox) lisinopril 20 mg tablet 20 mg PO DAILY 04/06/23 04/06/23 History loratadine 10 mg tablet 10 mg PO DAILY 04/06/23 04/06/23 History magnesium oxide 500 mg tablet 500 mg PO DAILY 04/06/23 04/06/23 History mecobalamin (vitamin B12) 1,000 1,000 mcg PO DAILY 04/06/23 04/06/23 History mcg disintegrating tablet,sublingual metoprolol succinate 100 mg 100 mg PO DAILY 04/06/23 04/13/23 History tablet,extended release 24 hr oxybutynin chloride 10 mg 10 mg PO DAILY 04/06/23 04/06/23 History tablet,extended release 24 hr trazodone 50 mg tablet 50 mg PO HS 04/06/23 04/06/23 History Allergies Allergy/AdvReac Type Severity Reaction Status Date / Time No Known Allergies Allergy Verified 04/13/23 07:46 Exam Const: General: alert Orientation/consciousness: patient oriented x3 Resp: Auscultation: clear to auscultation bilaterally Cardio: Rhythm: regular rhythm GI: GI Palp: Yes Soft to palpation and No Tender
[2023-04-13 07:48] VITALS: PULSE 112; RESP 18; TEMP 36.2; O2SAT 100
[2023-04-13] MEDS: LACTATED RINGERS 1,000 ML 150 ML IV CONT (08:12)
--- NOTE | 2023-04-13 08:29 | WPDANESEPPF ---
Anes - Initial Pre Proc Eval Procedure: Operation Date: 04/13/23 09:00 Proposed Procedures p Esophagogastroduodenoscopy & Colonoscopy - Wilber Cobb MD Date/Time: 04/13/23 08:29 Surgeon: Wilber Cobb MD Pre Op Diagnosis: positive cologuard, heartburn Patient Data Age: 82 Gender: F Height: 1.57 m Weight: 58.7 kg Last Vital Signs Temp 97.1 F L 04/13/23 07:48 Pulse 112 H 04/13/23 07:48 Resp 18 04/13/23 07:48 Pulse Ox 100 04/13/23 07:48 O2 Del Method Room Air 04/13/23 07:48 Allergies Allergy/AdvReac Type Severity Reaction Status Date / Time No Known Allergies Allergy Verified 04/13/23 07:46 Home Medications Medication Instructions Recorded Confirmed Type ascorbic acid (vitamin C) 500 mg 500 mg PO BID 07/08/19 04/06/23 History tablet (Vitamin C) turmeric root extract 500 mg 500 mg PO DAILY 05/25/20 04/06/23 History capsule atorvastatin 10 mg tablet 10 mg PO DAILY #90 tabs 12/23/20 04/06/23 Rx rivaroxaban 20 mg tablet (Xarelto) 20 mg PO DAILY@1700 #30 tabs 03/02/21 04/13/23 Rx Cinnamon 0.5 tsp PO DAILY 04/06/23 04/06/23 History acetaminophen 650 mg 650 mg PO BID 04/06/23 04/06/23 History tablet,extended release (Tylenol 8 Hour) cholecalciferol (vitamin D3) 25 25 mcg PO DAILY 04/06/23 04/06/23 History mcg (1,000 unit) tablet (Vitamin D3) levothyroxine 50 mcg tablet 50 mcg PO 0200 04/06/23 04/06/23 History (Euthyrox) lisinopril 20 mg tablet 20 mg PO DAILY 04/06/23 04/06/23 History loratadine 10 mg tablet 10 mg PO DAILY 04/06/23 04/06/23 History magnesium oxide 500 mg tablet 500 mg PO DAILY 04/06/23 04/06/23 History mecobalamin (vitamin B12) 1,000 1,000 mcg PO DAILY 04/06/23 04/06/23 History mcg disintegrating tablet,sublingual metoprolol succinate 100 mg 100 mg PO DAILY 04/06/23 04/13/23 History tablet,extended release 24 hr oxybutynin chloride 10 mg 10 mg PO DAILY 04/06/23 04/06/23 History tablet,extended release 24 hr trazodone 50 mg tablet 50 mg PO HS 04/06/23 04/06/23 History Patient hx anesthesia problems: none Family hx anesthesia problems: none Results Review: All pre-operative results and documents have been reviewed as part of the pre-operative evaluation. [facility] Past Medical History Medical History Anxiety Arthritis Atrial fibrillation Chronic rhinitis Degenerative joint disease of knee Depression DVT (deep venous thrombosis) Effusion, right knee Essential (primary) hypertension History of DVT (deep vein thrombosis) Hyperlipidemia Hypothyroidism Lumbar back pain Other spondylosis with myelopathy, lumbar region Right knee pain Thyroid disease Vertigo Vision abnormalities Surgical History Surgical History History of bladder surgery History of hysterectomy Hx of cholecystectomy Status post arthroscopy of right knee Family History Family History Mother Patient's mother is Family history of malignant neoplasm of breast in first degree relative Father Patient's mother is Sibling Family history of arthritis Other Cerebrovascular accident Family history of heart disease in male family member before age 55 Family history of malignant neoplasm of breast Social History Social History Smoking status: Never smoker Second hand tobacco smoke exposure: No Smoking end date: 09/11/1961 Alcohol intake: current Substance use: never Substance use type: does not use Living arrangements: with family Gender identity (if verbalized by the patient): Female Sexual Orientation (if Verbalized by the Patient): Straight or Heterosexual Spiritual care concerns: No Anes - Eval Final PreProcedure Day of Procedure 04/13/23 08:29 Patient weight: normal Heart
[2023-04-13 09:14] VITALS: BP 98/60; PULSE 88; RESP 22; O2SAT 100
[2023-04-13 09:24] VITALS: BP 91/54; PULSE 87; RESP 20; O2SAT 98
[2023-04-13 09:34] VITALS: BP 102/48; PULSE 74; RESP 20; O2SAT 98
[2023-04-13 09:44] VITALS: BP 130/79; PULSE 72; RESP 20; O2SAT 100
== END 2023-04-13 10:03 | disposition home or self-care (01) ==
PROVIDERS: PCP Family Medicine; Visit Provider Internal Medicine Gastroenterology
PROC: 0DJ08ZZ Inspection of Upper Intestinal Tract, Via Natural or Artificial Opening Endoscopic (ICD-10-PCS; CPT 43235; principal; 2023-04-13 09:00)
DX: Z12.11 Encounter for screening for malignant neoplasm of colon (principal); K57.30 Diverticulosis of large intestine without perforation or abscess without bleeding; R19.5 Other fecal abnormalities; K21.9 Gastro-esophageal reflux disease without esophagitis; I48.91 Unspecified atrial fibrillation; E78.5 Hyperlipidemia, unspecified; E03.9 Hypothyroidism, unspecified; F41.9 Anxiety disorder, unspecified; M47.16 Other spondylosis with myelopathy, lumbar region; Z86.718 Personal history of other venous thrombosis and embolism; Z79.01 Long term (current) use of anticoagulants
CPT/HCPCS: 43239; G0121; 87081; 88305; C1726; J2704; J7120

== ENCOUNTER 2023-07-27 11:33 | Outpatient (CLI) | payer MEDICARE, SELFPAY ==
--- NOTE | ~2023-07-27 | US_ITS ---
EXAMINATION: US art doppler w press LE BI DATE: 07/27/2023 12:44 INDICATION: Peripheral arterial occlusive disease. TECHNIQUE: Segmental pressures and plethysmographic and Doppler waveforms of the brachial and lower e xtremity arteries were obtained. COMPARISON: None. FINDINGS: Right and left brachial artery pressures of 147 mm Hg and 148 mm Hg, respectively, are concordant (no rmal difference <= 30 mmHg). The right ankle-brachial index (THIAGO) is 1.18 (normal >= 0.9-1). The right great toe-brachial index (T BI) is 1.02 (normal >= 0.6-0.8). The left THIAGO is 1.15. The left TBI is 1.14. Cardiac arrhythmia is pr esent. IMPRESSION: 1. Normal THIAGO's and TBI's bilaterally. No significant occlusive disease. 2. Cardiac arrhythmia is present. Correlate with EKG. Reviewed, dictated and finalized at location A. [employer]
== END 2023-07-27 11:34 | disposition home or self-care (01) ==
LOC: CHSIMG 11:36
PROVIDERS: PCP Nurse Practitioner Family; Visit Provider Podiatrist Foot & Ankle Surgery
DX: I73.9 Peripheral vascular disease, unspecified (principal); I49.9 Cardiac arrhythmia, unspecified
CPT/HCPCS: 93923

== ENCOUNTER 2025-09-05 14:10 | Emergency (ER) | payer MEDICARE, SELFPAY ==
[2025-09-05 14:45] VITALS: BP 170/130; PULSE 93; RESP 16; TEMP 36.4; O2SAT 100
--- NOTE | 2025-09-05 15:26 | ED.URI ---
HPI - URI/Sore Throat General Chief Complaint: Upper Respiratory Infection Stated Complaint: coughing, runny nose, headache Time Seen by Provider: 09/05/25 15:27 Source: patient, RN notes reviewed and old records reviewed Mode of arrival: ambulatory Limitations: no limitations History of Present Illness HPI Narrative: 85-year-old female presents to the [facility] with complaints of cough, runny nose and headache since yesterday Prior to arrival Denies chest pain or fevers. Patient mostly concerned because she had the same exact symptoms when she had COVID a year ago Related Data Home Medications ?Medication ?Instructions ?Recorded ?Confirmed ?Last Taken ?Type ascorbic acid (vitamin C) 500 mg 500 mg PO BID 07/08/19 09/05/25 03/29/21 History tablet (Vitamin C) turmeric root extract 500 mg 500 mg PO DAILY 05/25/20 04/06/23 03/29/21 History capsule Cinnamon 0.5 tsp PO DAILY 04/06/23 09/05/25 Unknown History acetaminophen 650 mg 650 mg PO BID 04/06/23 09/05/25 Unknown History tablet,extended release (Tylenol 8 Hour) cholecalciferol (vitamin D3) 25 25 mcg PO DAILY 04/06/23 09/05/25 Unknown History mcg (1,000 unit) tablet (Vitamin D3) levothyroxine 50 mcg tablet 50 mcg PO 0200 04/06/23 09/05/25 Unknown History (Euthyrox) lisinopril 20 mg tablet 20 mg PO DAILY 04/06/23 09/05/25 Unknown History loratadine 10 mg tablet 10 mg PO DAILY 04/06/23 04/06/23 Unknown History magnesium oxide 500 mg PO DAILY 04/06/23 04/06/23 Unknown History mecobalamin (vitamin B12) 1,000 1,000 mcg PO DAILY 04/06/23 04/06/23 Unknown History mcg disintegrating tablet,sublingual metoprolol succinate 100 mg 100 mg PO DAILY 04/06/23 09/05/25 04/13/23 06:00 History tablet,extended release 24 hr oxybutynin chloride 10 mg 10 mg PO DAILY 04/06/23 04/06/23 Unknown History tablet,extended release 24 hr trazodone 50 mg tablet 50 mg PO HS 04/06/23 09/05/25 Unknown History trospium 20 mg tablet mg 09/05/25 Unknown History Allergies Allergy/AdvReac Type Severity Reaction Status Date / Time No Known Allergies Allergy Verified 09/05/25 14:54 Review of Systems Review of Systems: All systems reviewed & are unremarkable except as noted in HPI and below Constitutional: Constitutional: Reports no additional constitutional complaints ENT: Reports as per HPI Cardiovascular: Cardiovascular: Reports no additional cardiovascular complaints, Denies chest pain and Denies dyspnea Respiratory: Respiratory: Reports as per HPI, Denies chest congestion, Reports cough and Denies dyspnea Musculoskeletal: Musculoskeletal: Reports no additional musculoskeletal complaints Integumentary/Breasts: Skin/Breast: Reports system reviewed and no additional complaints, except as docu [facility] Past Medical History Medical History Anxiety Arthritis Atrial fibrillation Chronic rhinitis Degenerative joint disease of knee Depression DVT (deep venous thrombosis) Effusion, right knee Essential (primary) hypertension History of DVT (deep vein thrombosis) Hyperlipidemia Hypothyroidism Lumbar back pain Other spondylosis with myelopathy, lumbar region Right knee pain Thyroid disease Vertigo Vision abnormalities Surgical History Surgical History History of bladder surgery History of hysterectomy Hx of cholecystectomy Status post arthroscopy of right knee Family History Family History Mother Patient's mother is Family history of malignant neoplasm of breast in first degree relative Father Patient's mother is Sibling Family history of arthritis Other Cerebrovascular accident Family history of heart disease in male family member before age 55 Family history of malignant neoplasm of breast Social History Social History Smoking status: Never smoker Second hand tobacco smoke exposure: No Smoking end date: 09/11/1961 Alcohol intake: current Substance use: never Substance use type: does not use Living arrangements: with family Gender identity (if verbalized by the patient): Female Sexual Orientation (if Verbalized by the Patient): Straight or Heterosexual Spiritual care concerns: No Comments At the time of my signature, I reviewed and agree with the nursing past medical, surgical, social, and family history. There is no relevant family history pertinent to the patient complaint. Exam Const: General: cooperative, no acute distress, well developed, alert, ill appearing chronically; not acutely and well nourished Nutritional Appearance: well nourished Orientation/consciousness: patient oriented x3 Limitations: no limitations HENMT: Head: normal to inspection Ears: hearing grossly normal bilaterally, external ears normal, TM's normal bilaterally, EAC's normal, mastoids normal and no periauricular adenopathy Mouth: Yes Normal oral and palatal mucosa present, Yes lip normal, Yes tongue normal and Yes moist mucous membranes Throat: posterior oropharynx normal, uvula midline and no uvular edema Eyes: General: appearance normal, both eyes and all related structures Alignment and Position: alignment normal Neck: Neck: normal visual inspection, full ROM, no lymphadenopathy and no meningeal signs Chest: Chest palpation & inspection: normal inspection of the chest Resp: Effort & Inspection: normal respiratory effort and able to speak in complete sentences Auscultation: clear to auscultation bilaterally, no crackles, no rales, no rhonchi and no wheezes Cardio: Rate: regular rate Skin: General skin exam: normal color and no rashes or lesions noted Neuro: General: patient oriented x3, gait normal, moves all extremities and no meningeal signs Cognition (Neuro): normal cognition Speech: normal speech Gait exam (Neuro): Normal gait present Extrem: General: normal to inspection, full ROM, capillary refill normal and normal gait Psych: Appearance: grossly normal and well kempt Mental Status: mental status grossly normal Speech and movement: Normal speech and movement present and Clear speech present Affect: normal affect Attitude: cooperative Course Course Level of Care: Express Care Visit Vital Signs Vital signs: Vital Signs Temperature 97.5 F L 09/05/25 14:45 Pulse Rate 93 09/05/25 14:45 Respiratory Rate 16 09/05/25 14:45 Blood Pressure 170/130 H 09/05/25 14:45 Pulse Oximetry 100 09/05/25 14:45 Temperature 97.5 F L 09/05/25 14:45 Pulse Rate 93 09/05/25 14:45 Respiratory Rate 16 09/05/25 14:45 Blood Pressure 153/100 H 09/05/25 15:39 Pulse Oximetry 100 09/05/25 14:45 reviewed MDM MDM Narrative Medical decision making narrative: Patient sitting in exam room. Patient is nontoxic, vitals stable. Patient presents with URI symptoms for 1 day. No treatment prior to arrival. Concern for COVID, flu COVID were negative in clinic. Discussed this with patient. No acute acute findings noted on exam. Patient appropriate for outpatient treatment with close follow-up Discharge instructions reviewed with patient, as well as provided in writing per nursing staff. The instructions also include specific and strict return/GO TO THE ER as well as f/u information. All questions have been answered, and the patient deny any further questions with discharge and discharge plan. Some parts of this dictation were generated by voice recognition software and may contain typographical and/or grammatical inaccuracies. Differential Diagnosis Differential Diagnosis: Differential diagnostic considerations for upper respiratory infection include upper respiratory infection, croup, otitis media, sinusitis, viral infection, bronchitis, influenza, pharyngitis, strep, uvulitis.? Lab Data Labs: Lab Results 09/05/25 Range/Units 15:33 POC Influenza A Ag Negative (Negative) POC Influenza B Ag Negative (Negative) POC SARS CoV-2 Ag Negative (Negative) Reviewed Discharge Plan Discharge Clinical Impression: Upper respiratory infection Qualifiers: URI type: unspecified viral URI Qualified Code(s): J06.9 - Acute upper respiratory infection, unspecified Patient Disposition: Home Condition: Stable Instructions: Antibiotic Form, Upper Respiratory Infection (ED), Viral Syndrome (ED) Additional Instructions: Today your blood pressure was 170/130. Please follow-up with your primary care provider within 2 weeks to have this rechecked Your rapid COVID test were negative Your rapid flu test was negative Your symptoms are likely due to a viral illness, which is not treated with antibiotics. Typically viral infections last 7-10 days, can linger for couple of weeks. It is very important to treat your symptoms. Drink plenty of water, Gatorade, Pedialyte, ice pops or Jell-O. -Alternate Tylenol and Motrin per package directions for fever or pain. You can alternate every 4 hours -Antihistamine medication such as Zyrtec/Claritin during the day can help improve symptoms. -doing daily nasal irrigations can help relieve pressure your sinuses. Things like a Neti pot -Use Flonase twice a day for 5 days then daily to help reduce the inflammation and dry up your sinuses. -You can also use Coricidin HBP HBP or Mucinex. Be sure to drink plenty of water with this medication at least 8 ounces with every dose and it is important to drink 8 to 10 glasses of water per day. Water is a natural decongestant -Eat and drink things that are easy to swallow, like tea or soup, or popsicles. -Oral rinses such as: Salt water gargles and/or may use topical anesthetic (eg. Chloraseptic spray) or lozenges to relieve dryness or throat pain). -Frequent hand washing or hand pharmacy teacher is one of the best ways to prevent spread of infection. -Using a vaporizer or humidifier at night will also help thin secretions and help with coughing up phlegm. -Follow up with primary care provider in 7-10 days if condition is not improving - For new or worsening symptoms go directly to the nearest ER Patient Language: Greenlandic Prescriptions: No Action trospium 20 mg tablet turmeric root extract 500 mg capsule 500 mg PO DAILY ascorbic acid (vitamin C) [Vitamin C] 500 mg Tablet 500 mg PO BID Xarelto 20 mg Tablet 20 mg PO DAILY@1700 Qty: 30 1RF trazodone 50 mg tablet 50 mg PO HS oxybutynin chloride 10 mg tablet extended release 24hr 10 mg PO DAILY lisinopril 20 mg tablet 20 mg PO DAILY metoprolol succinate 100 mg tablet extended release 24 hr 100 mg PO DAILY acetaminophen [Tylenol 8 Hour] 650 mg Tablet Extended Release 650 mg PO BID magnesium oxide 500 mg Tablet 500 mg PO DAILY loratadine 10 mg Tablet 10 mg PO DAILY cholecalciferol (vitamin D3) [Vitamin D3] 25 mcg (1,000 unit) Tablet 25 mcg PO DAILY mecobalamin (vitamin B12) 1,000 mcg Tablet,Disintegrating 1,000 mcg PO DAILY Cinnamon 0.5 tsp PO DAILY levothyroxine [Euthyrox] 50 mcg tablet 50 mcg PO 0200 atorvastatin 10 mg tablet 10 mg PO DAILY Qty: 90 1RF Follow-up/Referrals: Heather,Bandar Kemp MD [Primary Care Provider, Unknown] - 2 Weeks Referral Note: Pressure check, 170/130 Clinical Impression: Upper respiratory infection Time of Disposition: 15:36
[2025-09-05 15:35] LABS: EDCOVIDSCREEN Negative (Negative); EDINFLUASCREEN Negative (Negative); EDINFLUBSCREEN Negative (Negative)
[2025-09-05 15:39] VITALS: BP 153/100
== END 2025-09-05 15:44 | disposition home or self-care (01) ==
PROVIDERS: Emergency Provider Nurse Practitioner; PCP Family Medicine
DX: J06.9 Acute upper respiratory infection, unspecified (principal); Z20.822 Contact with and (suspected) exposure to COVID-19; I48.91 Unspecified atrial fibrillation; I10 Essential (primary) hypertension; E78.5 Hyperlipidemia, unspecified; E03.9 Hypothyroidism, unspecified; M19.90 Unspecified osteoarthritis, unspecified site; M47.16 Other spondylosis with myelopathy, lumbar region; F32.A Depression, unspecified; Z86.718 Personal history of other venous thrombosis and embolism; Z79.01 Long term (current) use of anticoagulants; Z87.891 Personal history of nicotine dependence
CPT/HCPCS: 87426; 87804; 99212; G0463